=== PATIENT | female | born 1950 | race Caucasian/White ===

== ENCOUNTER → 2020-11-07 | Outpatient (CLI) | payer MEDICARE, OTHER ==
[~2020-11-07] MED LIST: ALLO100T30 PO; ASPI-496 PO; CHOL200052 PO; HYDR-1067 PO; LISI5TAB7 PO; LOSA50TA2 PO; ONDA4TAB10 PO; PRED1TAB19 PO
== END | disposition home or self-care (01) ==
LOC: CFH 14:24
PROVIDERS: ATTEND Psychiatry & Neurology Neurology
DX: M50.222 Other cervical disc displacement at C5-C6 level (principal); M47.812 Spondylosis without myelopathy or radiculopathy, cervical region
CPT/HCPCS: 72141